=== PATIENT | female | born 1970 | race Caucasian/White ===

== ENCOUNTER 2021-01-20 23:16 | Emergency (ER) | payer OTHER ==
[~2021-01-20] VITALS: Ht 170.2 cm; Wt 64.6 kg
[~2021-01-20 23:16] MED LIST: CETI10CA PO; MONT10TA80 PO
[2021-01-20 23:45] VITALS: BP 121/69
--- NOTE | 2021-01-20 23:56 | PHYS DOC ---
Past History Past Medical History: UTI, Other Past Surgical History: Other Smoking: Non-smoker Alcohol Use: Rarely Drug Use: None General Adult EDM: Chief Complaint: PAIN ON URINATION HPI: HPI: "..I get kidney stones.. but this is probably a UTI... I usually start on pyridium.... but it was old so I did not take it..." Patient is a 50 year old female who presents with above hx and complaints lower pelvic discomfort and dysuria. Patient states her symptoms are just like previous urinary tract infections and not a kidney stone currently. Patient denies any any travel or specific ill contacts. Patient only follows at [place]. Patient does have a history of past renal stones. No history of vaginal discharge. No history of STDs. No history of travel. No specific ill contacts. No history immunosuppression. Review of Systems: Review of Systems: Constitutional: Denies fever or chills Eyes: Denies change in visual acuity HENT: Denies nasal congestion or sore throat Respiratory: Denies cough or shortness of breath Cardiovascular: Denies chest pain or edema GI: Denies abdominal pain, nausea, vomiting, bloody stools or diarrhea : History of dysuria Musculoskeletal: Denies back pain or joint pain Integument: Denies rash Neurologic: Denies headache, focal weakness or sensory changes Endocrine: Denies polyuria or polydipsia Lymphatic: Denies swollen glands Psychiatric: Denies depression or anxiety Family History: Family History: Noncontributory to presentation Current Medications: Current Meds: See nursing for home meds Allergies: Allergies: Allergies Coded Allergies Type Severity Reaction Last Updated Verified Sulfa (Sulfonamide Antibiotics) Allergy Unknown 01/21/14 Yes Physical Exam: PE: Constitutional: Moderate acute distress, non-toxic appearance. [] HENT: Normocephalic, atraumatic, bilateral external ears normal, oropharynx moist, no oral exudates, nose normal. [] Eyes: PERRLA, EOMI, conjunctiva normal, no discharge. [] Neck: Normal range of motion, no tenderness, supple, no stridor. [] Cardiovascular:Heart rate regular rhythm, no murmur [] Lungs & Thorax: Bilateral breath sounds equal apex auscultation [] Abdomen: Bowel sounds normal, soft, very mild supra pubic tenderness, no masses, no pulsatile masses. [] No rebound Skin: Warm, dry, no erythema, no rash. [] Back: No tenderness, no CVA tenderness. [] Extremities: No tenderness, no cyanosis, no clubbing, ROM intact, no edema. No psoas sign. Neurologic: Alert and oriented X 3, normal motor function, normal sensory function, no focal deficits noted. [] Psychologic: Affect anxious, judgement normal, mood normal. [] EKG: EKG: [] Radiology/Procedures: Radiology/Procedures: [] Heart Score: C/O Chest Pain: N/A Risk Factors: Risk Factors: DM, Current or recent (<one month) smoker, HTN, HLP, family history of CAD, obesity. Risk Scores: Score 0 - 3: 2.5% MACE over next 6 weeks - Discharge Home Score 4 - 6: 20.3% MACE over next 6 weeks - Admit for Clinical Observation Score 7 - 10: 72.7% MACE over next 6 weeks - Early Invasive Strategies Course & Med Decision Making: Course & Med Decision Making Pertinent Labs and Imaging studies reviewed. (See chart for details) Options of treatment discussed with patient patient declines labs or CT at this time. Request an antibiotic that is not Bactrim or sulfa-based. Patient to follow-up with culture at [place]. Patient elects to be started on Keflex 500 mg 3 times a day. Patient follow-up return if any concerns. Impression: 1. Dysuria 2. Urinary tract infection [] Dragon Disclaimer: Dragon Disclaimer: This electronic medical record was generated, in whole or in part, using a voice recognition dictation system. Departure Departure: Referrals: MARIA ALEJANDRA LEWIS DO [facility] (PCP) Scripts Ciprofloxacin (CIPRO) 500 Mg/5 Ml [facility]..rec 500 MG PO BID for UTI for 5 Days, MISC Prov: NAREN CRONIN MD 01/21/21 Dragon Disclaimer This chart was dictated in whole or in part using Voice Recognition software in a busy, high-work load, and often noisy Emergency Department environment. It may contain unintended and wholly unrecognized errors or omissions. Dragon Disclaimer This chart was dictated in whole or in part using Voice Recognition software in a busy, high-work load, and often noisy Emergency Department environment. It may contain unintended and wholly unrecognized errors or omissions. NAREN CRONIN MD Jan 20, 2021 23:56
[2021-01-21] MEDS ORDERED: KETOROLAC 30 MG/ML VIAL. IVP ONE
[2021-01-21] MEDS ORDERED: FAMOTIDINE 20 MG/2 ML VIAL IVP ONE
[2021-01-21] MEDS ORDERED: ONDANSETRON PF 4 MG/2 ML VIAL. IVP ONE
[2021-01-21] MEDS ORDERED: IV RINGERS SOLUTION,LACTATED 1,000 ML IV SCH
[2021-01-21] MEDS ORDERED: CIPROFLOXACIN HCL 500 MG TABLET ONE (00:14)
[2021-01-21] MEDS ORDERED: PHENAZOPYRIDINE 200 MG TABLET. ONE (00:14)
[2021-01-21] MEDS ORDERED: CIPR500S2 PO (00:15)
[2021-01-21] MEDS ORDERED: PHENAZOPYRIDINE 200 MG TABLET. PO ONE (00:15)
[2021-01-21] MEDS ORDERED: CIPROFLOXACIN HCL 500 MG TABLET PO ONE (00:15)
[2021-01-21 00:49] LABS: BILIRUBIN,URINE NEG (NEG); CLARITY,URINE HAZY; COLOR,URINE STRAW; GLUCOSE,URINE NEG (NEG)
[2021-01-21 00:50] LABS: BACTERIA,URINE FEW /HPF (0-FEW); NITRITE,URINE NEG (NEG); SQUAMOUS EPITHELIAL CELL,UR FEW /LPF; UROBILINOGEN,URINE 0.2 mg/dL (0.2 mg/dL)
[2021-01-21 00:51] LABS: BARBITURATES NEG (NEG); BENZODIAZEPINES NEG (NEG); CANNABINOIDS NEG (NEG); COCAINE NEG (NEG); METHADONE NEG (NEG); OPIATES NEG (NEG); PHENCYCLIDINE NEG (NEG)
[2021-01-21 01:04] LABS: AMPHETAMINE/METHAMPHETAMINE NEG (NEG)
== END 2021-01-21 00:25 | disposition home or self-care (01) ==
LOC: ER 23:16
DX: N39.0 Urinary tract infection, site not specified (principal); Z88.2 Allergy status to sulfonamides
CPT/HCPCS: 36415; 80307; 81001; 81025; 87086; 96360; 96361; 96372; 99283; 99285-25